=== PATIENT | female | born 1965 | race Caucasian/White ===

== ENCOUNTER 2016-04-03 11:53 | Day surgery (SDC) | payer MEDICAID ==
[~2016-04-03] VITALS: Ht 162.6 cm; Wt 119.5 kg
[2016-04-03 12:36] LABS: BASOPHILS 0.5 % (0.0-2.0); HEMATOCRIT 41.1 % (36.0-48.0); HEMOGLOBIN 13.8 g/dL (12-16); LYMPHOCYTES 28.8 % (15-50); MCH 30.5 pg (26.0-34.0); MCHC 33.6 g/dL (31.0-37.0); MCV 90.9 fL (80.0-100.0); MONOCYTES 5.8 % (2-11); NEUTROPHILS 62.9 % (40-80); PLATELET COUNT 140 10x3/uL (130-400); RBC 4.52 10x6/uL (4.00-5.40); RDW 13.6 % (11.5-14.5); WBC 5.5 10x3/uL (4.8-10.8)
[2016-04-03] MEDS ORDERED: PROVENTIL/2.5 MG/3 M (12:40)
[2016-04-03] MEDS ORDERED: ALEVE220 MG PO (12:40)
[2016-04-03] MEDS ORDERED: ABILIFY2 MG PO (12:41)
[2016-04-03] MEDS ORDERED: CLONAZEPAM2 MG/TAB PO (12:42)
[2016-04-03] MEDS ORDERED: LUMIGAN 0.01%2.5 ML EACH EYE (12:42)
[2016-04-03] MEDS ORDERED: LEXAPRO10 MG PO (12:43)
[2016-04-03] MEDS ORDERED: TOPROL XL25 MG PO (12:44)
[2016-04-03] MEDS ORDERED: XYZAL5 MG PO (12:44)
[2016-04-03] MEDS ORDERED: COZAAR100 MG PO (12:44)
[2016-04-03] MEDS ORDERED: ZANTAC150 MG PO (12:45)
[2016-04-03 12:47] LABS: ANION GAP 10.8 mmol/L (8-16); CALCIUM 8.9 mg/dL (8.5-10.1); CARBON DIOXIDE 28.9 mmol/L (21.0-32.0); POTASSIUM - SERUM 3.7 mmol/L (3.5-5.1)
[2016-04-03 12:55] VITALS: BP 146/81; Ht 162.6 cm; Wt 119.5 kg
--- NOTE | 2016-04-04 18:05 | OP ---
PATIENT NAME: TATIANNA MENDEZ MEDICAL RECORD: [id number] :61 LOCATION:D.OPS ADMISSION DATE: SURGEON: RAJNI HE MD DATE OF OPERATION: 04/03/2016 REFERRING PHYSICIAN: Dr. Noah Fuentes. INDICATIONS: Ms. Mendez is a delightful 51-year-old woman, who has had symptoms of some mild constipation and hematochezia. She presents for outpatient colonoscopy. PREMEDICATIONS: Total IV anesthesia (BMI of 45, obstructive sleep apnea), propofol 540 mg and Ancef 1 gram IV piggyback. INSTRUMENT: Olympus video colonoscope. PROCEDURE AND FINDINGS: After receiving informed consent, Ms. Mendez was placed in left lateral decubitus position, sedated as per anesthesia. After achieving an adequate level of sedation, digital rectal exam was performed that showed multiple external hemorrhoidal tags, no fissures or fistulas, normal sphincter tone, no palpable rectal masses. The colonoscope was introduced per rectally and advanced to the cecum without difficulty. In the cecum, was a large sessile polyp (carpet-like polyp) measuring 2-3 cm in size that was cold biopsied (secondary to location and large size, it was elected not to remove with hot biopsy forcep technique). In the distal ascending colon were 3 polyps, 2 of the polyps measured 2-2.5 cm in size, removed with hot biopsy forcep technique. The third polyp measuring 0.25-0.3 cm in size and was hot biopsied. In the mid to distal transverse colon was a 0.5 cm sessile polyp removed with biopsy forcep technique. In the descending colon were 5 polyps measuring in size from 0.75-1.5 cm in size, removed with hot biopsy forcep technique. Multiple diverticula were seen in the sigmoid colon (mild). In the distal rectum was 0.75 cm sessile polyp removed with biopsy forcep technique. On retroflexion, moderate internal hemorrhoids were noted, one mildly thrombosed. A good prep was present. Withdrawal time was 12 minutes. Ms. Mendez tolerated the procedure well, no immediate complications. ASSESSMENT: 1. Rectal polyp, status post polypectomy. 2. Five descending colon polyps, status post polypectomy. 3. Transverse colon polyp, status post polypectomy. 4. Three distal ascending colon polyp, status post polypectomy. 5. Large cecal polyp, status post cold biopsy. 6. Mild sigmoid diverticulosis coli. 7. Moderate internal hemorrhoids, source of hematochezia. RECOMMENDATIONS: 1. Follow up histopathology. 2. Avoid aspirin, nonsteroidal anti-inflammatory drugs and OREILLY-2 inhibitors for 14 days post polypectomy. 3. Referral to Dr. Biggs for evaluation of argon plasma coagulation of large cecal polyp. 4. Anusol-HC suppositories 1 per rectum b.i.d. for 14 days. 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
== END 2016-04-03 16:25 | disposition home or self-care (01) ==
LOC: D.OPS 11:53
PROVIDERS: Anesthesiology
DX: K63.5 Polyp of colon (principal); D12.3 Benign neoplasm of transverse colon; K57.30 Diverticulosis of large intestine without perforation or abscess without bleeding; K64.5 Perianal venous thrombosis; G47.33 Obstructive sleep apnea (adult) (pediatric); K59.00 Constipation, unspecified

== ENCOUNTER 2016-08-21 08:31 | Day surgery (SDC) | payer MEDICAID ==
[~2016-08-21] VITALS: Ht 162.6 cm; Wt 119.7 kg
[~2016-08-21 08:31] MED LIST: ABILIFY15 MG PO; ALEVE220 MG PO; BUTALB-APAP-CA1 EACH PO; COZAAR100 MG PO; K-TAB10 MEQ PO; KLONOPIN1 MG PO; LASIX20 MG PO; LEVOTHYROXINE150 MCG PO; LEXAPRO20 MG PO; LUMIGAN 0.01%2.5 ML EACH EYE; MUCINEX D1 TAB.SR . PO; PROAIR HFA8.5 GM INH; PROVENTIL/2.5 MG/3 M; TOPROL XL25 MG PO; XYZAL5 MG PO; ZANTAC150 MG PO
[2016-08-21] MEDS ORDERED: PROAIR HFA8.5 GM INH (08:58)
[2016-08-21 09:12] VITALS: BP 165/82; Ht 162.6 cm; Wt 119.7 kg
[2016-08-21 09:39] LABS: BASOPHILS 0.3 % (0-2); HEMATOCRIT 42.7 % (36.0-48.0); HEMOGLOBIN 14.2 g/dL (12-16); IMMATURE GRANULOCYTES 0.2 % (0-5); MCHC 33.3 g/dL (31.0-37.0); MCV 93.2 fL (80.0-100.0); MEAN PLATELET VOLUME 10.1 fL (7.4-10.4); MONOCYTES 8.4 % (2-11); NEUTROPHILS 66.1 % (40-80); PLATELET COUNT 153 10x3/uL (130-400); RBC 4.58 10x6/uL (4.00-5.40); RDW 13.6 % (11.5-14.5); WBC 6.3 10x3/uL (4.8-10.8)
[2016-08-21 09:47] LABS: APTT 28.5 SECONDS (22.8-39.4); INR 1.06 (0.85-1.17); PROTIME 13.6 SECONDS (11.6-15.0)
[2016-08-21 09:48] LABS: ANION GAP 10.9 mmol/L (8-16); CALCIUM 8.9 mg/dL (8.5-10.1); CARBON DIOXIDE 28.5 mmol/L (21.0-32.0); POTASSIUM - SERUM 4.4 mmol/L (3.5-5.1)
--- NOTE | 2016-08-21 11:34 | NUR ---
NO COUNTS, NO PREP R/T PROCEDURE
--- NOTE | 2016-08-21 11:52 | NUR ---
BOVIE PADS IN PLACE [id number]
--- NOTE | 2016-08-21 15:17 | NUR ---
AT 1240 PM CONSULTED ANETHESIA REGARDING LOW HEART RATE. ANETHESIA VOICED NO CONCERNS AT THIS TIME. NO NEW ORDERS. WILL CONTINUE TO MONITOR.
[2016-08-30] MEDS ORDERED: LUMIGAN 0.01%2.5 ML EACH EYE (08:39)
== END 2016-08-21 15:07 | disposition home or self-care (01) ==
LOC: D.OPS 08:31 → D.PAN 11:15 → D.OPS 15:07
PROVIDERS: Anesthesiology
DX: D12.0 Benign neoplasm of cecum (principal); D12.4 Benign neoplasm of descending colon; Z01.812 Encounter for preprocedural laboratory examination; Z88.1 Allergy status to other antibiotic agents; Z91.040 Latex allergy status; Z88.5 Allergy status to narcotic agent; Z88.0 Allergy status to penicillin; Z88.2 Allergy status to sulfonamides; Z88.8 Allergy status to other drugs, medicaments and biological substances; Z91.048 Other nonmedicinal substance allergy status

== ENCOUNTER 2016-08-30 10:00 | Day surgery (SDC) | payer MEDICAID ==
[2016-08-29 09:29] LABS: BASOPHILS 0.2 % (0-2); HEMOGLOBIN 13.6 g/dL (12-16); IMMATURE GRANULOCYTES 0.2 % (0-5); LYMPHOCYTES 24.1 % (15-50); MCH 30.8 pg (26.0-34.0); MCHC 33.2 g/dL (31.0-37.0); MCV 92.8 fL (80.0-100.0); MEAN PLATELET VOLUME 10.1 fL (7.4-10.4); MONOCYTES 6.5 % (2-11); PLATELET COUNT 145 10x3/uL (130-400); RBC 4.42 10x6/uL (4.00-5.40); RDW 13.4 % (11.5-14.5); WBC 5.5 10x3/uL (4.8-10.8)
[2016-08-29 09:38] LABS: ANION GAP 12.2 mmol/L (8-16); CALCIUM 8.5 mg/dL (8.5-10.1); CARBON DIOXIDE 27.8 mmol/L (21.0-32.0)
[2016-08-29 09:45] LABS: INR 1.03 (0.85-1.17); PROTIME 13.4 SECONDS (11.6-15.0)
[2016-08-29 09:46] LABS: APTT 28.5 SECONDS (22.8-39.4)
[~2016-08-30] VITALS: Ht 162.6 cm; Wt 119.7 kg
[2016-08-30 08:40] VITALS: BP 139/84; Ht 162.6 cm; Wt 119.7 kg
--- NOTE | 2016-08-30 13:46 | NUR ---
CONSULTED SANTINO GREEN CRNA REGARDING LOW HEART RATE. NO CONCERNS, NO NEW ORDERS AT THIS TIME. WILL CONTINUE TO MONITOR.
--- NOTE | 2016-08-30 16:29 | NUR ---
1620- PT ESCORTED OUT BY MYSELF
== END 2016-08-30 16:43 | disposition home or self-care (01) ==
LOC: D.SDCHOLD 10:00 → D.OPS 10:00 → EDSTATUS 10:00 → D.OPS 16:43
PROVIDERS: Anesthesiology
DX: D12.0 Benign neoplasm of cecum (principal); J45.909 Unspecified asthma, uncomplicated; G47.30 Sleep apnea, unspecified; I10 Essential (primary) hypertension; R01.1 Cardiac murmur, unspecified; H40.9 Unspecified glaucoma; R00.2 Palpitations; F32.9 Major depressive disorder, single episode, unspecified; F41.9 Anxiety disorder, unspecified; Z88.0 Allergy status to penicillin; Z88.1 Allergy status to other antibiotic agents; Z91.040 Latex allergy status; Z88.5 Allergy status to narcotic agent; Z88.2 Allergy status to sulfonamides; Z88.8 Allergy status to other drugs, medicaments and biological substances; Z91.048 Other nonmedicinal substance allergy status; Z87.891 Personal history of nicotine dependence; Z79.899 Other long term (current) drug therapy

== ENCOUNTER 2016-10-12 22:22 | Emergency (ER) | payer MEDICAID ==
[2016-08-30 08:40] VITALS: BMI 45.4
[2016-10-12 23:28] LABS: BASOPHILS 0.3 % (0-2); EOSINOPHILS 1.8 % (0-7); HEMOGLOBIN 13.5 g/dL (12-16); IMMATURE GRANULOCYTES 0.3 % (0-5); LYMPHOCYTES 29.6 % (15-50); MCH 30.9 pg (26.0-34.0); MCHC 33.8 g/dL (31.0-37.0); MCV 91.5 fL (80.0-100.0); MONOCYTES 7.5 % (2-11); NEUTROPHILS 60.5 % (40-80); PLATELET COUNT 153 10x3/uL (130-400); RBC 4.37 10x6/uL (4.00-5.40); RDW 13.4 % (11.5-14.5); WBC 6.5 10x3/uL (4.8-10.8)
[2016-10-13 00:04] LABS: ALBUMIN 3.6 g/dL (3.4-5.0); ALKALINE PHOSPHATASE 83 U/L (46-116); ALT (SGPT) 34 U/L (10-68); BILIRUBIN - TOTAL 0.35 mg/dL (0.2-1.3); CALC OSMOLALITY 286 mosm/kg (275-300); CALCIUM 8.6 mg/dL (8.5-10.1); CARBON DIOXIDE 30.3 mmol/L (21.0-32.0); CHLORIDE - SERUM 102 mmol/L (98-107); CREATININE - SERUM 1.2 mg/dL (0.6-1.3); POTASSIUM - SERUM 3.3 mmol/L (3.5-5.1); SODIUM 140 mmol/L (136-145); UREA NITROGEN 16 mg/dL (7-18); eGFR NON AFRICAN AMERICAN 50 mL/min (90-120)
[2016-10-13 00:05] LABS: GLUCOSE 217 mg/dL (74-106)
[2016-10-13 00:15] LABS: CREATINE KINASE 86 UL (21-215); PRO BNP 161 pg/mL (0-125)
[2016-10-13 00:16] LABS: TROPONIN-I < 0.017 ng/mL (0.000-0.060)
== END 2016-10-13 01:22 | disposition home or self-care (01) ==
LOC: D.ER 22:22
PROVIDERS: Family Medicine
DX: I50.9 Heart failure, unspecified (principal); R22.43 Localized swelling, mass and lump, lower limb, bilateral

== ENCOUNTER 2017-03-06 21:03 | Emergency (ER) | payer MEDICAID ==
[2016-08-30 08:40] VITALS: BMI 45.4
[2017-03-06 21:44] LABS: BASOPHILS 0.5 % (0-2); EOSINOPHILS 10.3 % (0-7); HEMATOCRIT 39.2 % (36.0-48.0); IMMATURE GRANULOCYTES 0.4 % (0-5); LYMPHOCYTES 27.5 % (15-50); MCH 31.9 pg (26.0-34.0); MCHC 33.2 g/dL (31.0-37.0); MCV 96.1 fL (80.0-100.0); MONOCYTES 8.2 % (2-11); NEUTROPHILS 53.1 % (40-80); RBC 4.08 10x6/uL (4.00-5.40); RDW 13.1 % (11.5-14.5); WBC 5.7 10x3/uL (4.8-10.8)
[2017-03-06 21:45] LABS: PLATELET COUNT 201 10x3/uL (130-400)
[2017-03-06 21:46] LABS: APPEARANCE CLEAR (CLEAR); BILIRUBIN NEGATIVE (NEGATIVE); COLOR YELLOW (YELLOW); GLUCOSE NEGATIVE (NEGATIVE); KETONE NEGATIVE (NEGATIVE); NITRITE NEGATIVE (NEGATIVE); PROTEIN NEGATIVE (NEGATIVE); SPECIFIC GRAVITY 1.025 (1.005-1.020); UROBILINOGEN NORMAL (NORMAL)
[2017-03-06 21:58] LABS: ALBUMIN 3.9 g/dL (3.4-5.0); ANION GAP 14.4 mmol/L (8-16); BILIRUBIN - TOTAL 0.35 mg/dL (0.2-1.3); CARBON DIOXIDE 26.7 mmol/L (21.0-32.0); CREATININE - SERUM 1.1 mg/dL (0.6-1.3); POTASSIUM - SERUM 4.1 mmol/L (3.5-5.1); PROTEIN - SERUM 7.1 g/dL (6.4-8.2)
== END 2017-03-07 01:05 | disposition home or self-care (01) ==
LOC: D.ER 21:03
PROVIDERS: Family Medicine
DX: K52.9 Noninfective gastroenteritis and colitis, unspecified (principal); K82.8 Other specified diseases of gallbladder; I50.9 Heart failure, unspecified

== ENCOUNTER 2017-08-15 06:17 | Day surgery (SDC) | payer MEDICAID ==
[~2017-08-15] VITALS: Ht 162.6 cm; Wt 111.1 kg
--- NOTE | ~2017-08-15 | OP ---
PATIENT NAME: TATIANNA MAJOR MEDICAL RECORD: [id number] :61 LOCATION:D.OPS ADMISSION DATE: SURGEON: EFREN BERNSTEIN MD DATE OF OPERATION: 08/15/2017 PREOPERATIVE DIAGNOSES: 1. History of colon polyps. 2. History of a complex colon polyp involving the cecum which required the patient to undergo a laparoscopic cecectomy. 3. Intractably symptomatic internal and external hemorrhoids. POSTOPERATIVE DIAGNOSES: 1. History of colon polyps. 2. History of a complex colon polyp involving the cecum which required the patient to undergo a laparoscopic cecectomy. 3. Intractably symptomatic internal and external hemorrhoids. 4. One new anal polyp of the sessile, 6 x 5 mm. 5. No anal fissure. PROCEDURES: 1. Total colonoscopy to cecum. 2. Hot biopsy forceps polypectomy x1. 3. Procedure for prolapse and hemorrhoids. SURGEON: Efren Bernstein MD DIRECTOR OF ADMISSIONS: None. BLOOD LOSS: Minimal. ANESTHESIA: General. COMPLICATIONS: None. The risks, possible complications and alternatives to the procedure were explained to the patient. She elects to proceed. OPERATIVE COURSE: The patient was conveyed to the operating room electively on 08/15/2017. General anesthesia was induced by the anesthesia staff. The patient was placed in a Araujo position. A digital rectal examination was performed. A colonoscope was inserted through the anus. It was easily advanced to the cecum. I noted no regrowth of the cecal polyp. In fact it appeared to be a fairly normal cecum and so there was still residual cecum left after the cecectomy. I slowly withdrew the endoscope. A combination of normal imaging and narrow band imaging were utilized. I dragged the folds. I irrigated and aspirated extensively. The pullback was greater than 18-minute pullback. A retroflexed view was obtained in the rectum. I noted a small polyp which was most easily identifiable through narrow band imaging. It was removed in its entirety through the use of a hot biopsy forceps polypectomy technique. The patient was then positioned in the lithotomy position. The buttocks were taped laterally. The anus and perianal areas were sterilely prepped and draped. U-shaped anal retractors were placed. The PPH dilator retractor was placed. Through the clear retractor, 1 cm cephalad to the clear retractor, a mucosal pursestring suture of 2-0 Prolene was applied. I then inserted the PPH stapling OPERATIVE REPORT [id number] TATIANNA MAJOR device with the cone cephalad to the stapling device. The suture was then tightened and tied. The stapling device was engaged. It was held in place for 2 minutes and then fired. It was held in place for another 2 minutes and then withdrawn under direct vision. There was an entire mucosal donut within the stapling device. Bleeding along the anastomotic staple line was controlled with [id number] 3-0 Vicryls. Gelfoam was applied within the anus and lower rectum. A combination of Marcaine and a steroid preparation were used to infiltrate the perianal tissues. A topical anesthetic ointment was applied to the external hemorrhoids. The patient was then extubated and conveyed to the post-anesthesia care unit where she was in stable condition. She will be dismissed home on Valium as well as hydrocodone and Colace. I will see her in the office in 2-3 weeks. 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
[~2017-08-15 06:17] MED LIST changes: +GLUCOPHAGE1000 MG PO; +LOPID600 MG PO; +MINIPRESS1 MG PO
[2017-08-15 06:36] LABS: BASOPHILS 0.4 % (0-2); EOSINOPHILS 1.9 % (0-7); HEMATOCRIT 38.5 % (36.0-48.0); HEMOGLOBIN 12.9 g/dL (12-16); IMMATURE GRANULOCYTES 0.4 % (0-5); LYMPHOCYTES 29.8 % (15-50); MCH 31.7 pg (26.0-34.0); MCHC 33.5 g/dL (31.0-37.0); MCV 94.6 fL (80.0-100.0); MEAN PLATELET VOLUME 9.6 fL (7.4-10.4); MONOCYTES 7.7 % (2-11); NEUTROPHILS 59.8 % (40-80); PLATELET COUNT 203 10x3/uL (130-400); RBC 4.07 10x6/uL (4.00-5.40); RDW 12.9 % (11.5-14.5); WBC 5.2 10x3/uL (4.8-10.8)
[2017-08-15 07:00] LABS: APTT 28.4 SECONDS (22.8-39.4); INR 1.02 (0.85-1.17)
[2017-08-15 07:24] VITALS: BP 148/85; Ht 162.6 cm; Wt 111.1 kg
== END 2017-08-15 13:40 | disposition home or self-care (01) ==
LOC: D.OPS 06:17 → D.PAN 09:00 → D.OPS 13:40
PROVIDERS: Anesthesiology
DX: K62.0 Anal polyp (principal); K64.8 Other hemorrhoids; K64.4 Residual hemorrhoidal skin tags; Z86.010 Personal history of colon polyps; Z01.812 Encounter for preprocedural laboratory examination

== ENCOUNTER 2017-08-17 22:42 | Emergency (ER) | payer MEDICAID ==
[~2017-08-17] VITALS: Ht 162.6 cm; Wt 111.1 kg
[2017-08-17 22:46] VITALS: Ht 162.6 cm; Wt 111.1 kg
[2017-08-17] MEDS ORDERED: VALIUM5 MG PO (22:48)
[2017-08-17] MEDS ORDERED: HYDROCODON-ACE1 EAC7 PO ×2 (22:48→23:35)
[2017-08-17] MEDS ORDERED: KEFLEX500 MG PO (23:35)
[2017-08-17] MEDS ORDERED: PREDNISONE5 MG PO (23:35)
[2017-08-17 23:58] VITALS: BP 132/74
== END 2017-08-17 23:59 | disposition home or self-care (01) ==
LOC: D.ER 22:42
DX: T80.1XXA Vascular complications following infusion, transfusion and therapeutic injection, initial encounter (principal)

== ENCOUNTER 2018-02-06 02:07 | Emergency (ER) | payer MEDICAID ==
[~2018-02-06] VITALS: Ht 162.6 cm; Wt 109.5 kg
[~2018-02-06 02:07] MED LIST changes: +HYDROCODON-ACE1 EAC7 PO; +KEFLEX500 MG PO; +PREDNISONE5 MG PO; +VALIUM5 MG PO
[2018-02-06 02:13] VITALS: Ht 162.6 cm; Wt 109.5 kg
[2018-02-06] MEDS ORDERED: VENTOLIN HFA18 GM INH (02:54)
[2018-02-06] MEDS ORDERED: ZPAK PO (02:54)
[2018-02-06] MEDS ORDERED: STERAPRED DS 1010 MG PO (03:53)
[2018-02-06 04:41] VITALS: BP 162/98
== END 2018-02-06 04:42 | disposition home or self-care (01) ==
LOC: D.ER 02:07
DX: J45.909 Unspecified asthma, uncomplicated (principal); I10 Essential (primary) hypertension